=== PATIENT | female | born 1965 | race Caucasian/White ===

== ENCOUNTER 2024-04-23 07:15 | Day surgery (SDC) | payer MEDICAID ==
[~2024-04-23] VITALS: Ht 167.6 cm; Wt 122.7 kg
[~2024-04-23 07:15] MED LIST: IBUP-1984 PO
[2024-04-23 07:41] VITALS: BP 140/70; PULSE 59; RESP 19
[2024-04-23] MEDS ORDERED: OMEP40CA21 PO (07:59)
[2024-04-23] MEDS ORDERED: TIRZ7.5P (07:59)
[2024-04-23] MEDS ORDERED: HYDR50TA65 PO (07:59)
[2024-04-23] MEDS ORDERED: ROSU20TA98 PO (07:59)
[2024-04-23] MEDS ORDERED: FURO-150 PO (07:59)
[2024-04-23] MEDS ORDERED: CHOL100046 PO (07:59)
[2024-04-23] MEDS ORDERED: NYST15PO13 (07:59)
[2024-04-23] MEDS ORDERED: CYAN10007 IM (07:59)
[2024-04-23] MEDS ORDERED: MICO45CR15 VG (07:59)
[2024-04-23] MEDS ORDERED: IBUP-1985 PO (07:59)
[2024-04-23] MEDS ORDERED: NYST15CR36 (07:59)
[2024-04-23] MEDS ORDERED: CETI10TA14 PO (07:59)
[2024-04-23] MEDS ORDERED: FLEC50TA PO (07:59)
[2024-04-23] MEDS ORDERED: OLOP5DRO26 EACHEYE (07:59)
[2024-04-23] MEDS ORDERED: QUET50TA24 PO (07:59)
[2024-04-23] MEDS ORDERED: LIDOcaine 2% Viscous 15ml cup ONE (08:31)
[2024-04-23 09:40] VITALS: BP 134/81; PULSE 64; RESP 13; O2SAT 97
[2024-04-23 09:50] VITALS: BP 122/81; PULSE 62; RESP 13; O2SAT 98
[2024-04-23 10:00] VITALS: BP 130/72; PULSE 62; RESP 18; O2SAT 98
[2024-04-23 10:10] VITALS: BP 108/63; PULSE 61; RESP 15; O2SAT 95
== END 2024-04-23 23:59 | disposition home or self-care (01) ==
LOC: PRE-OP 07:15 → GI LAB 23:59
PROVIDERS: ATTEND Internal Medicine Gastroenterology
DX: Z12.11 Encounter for screening for malignant neoplasm of colon (principal); K21.9 Gastro-esophageal reflux disease without esophagitis; D12.3 Benign neoplasm of transverse colon; R13.10 Dysphagia, unspecified
CPT/HCPCS: 43239; 45380; J7030; Z7512; 99152; 99153; A4620